=== PATIENT | male | born 1960 | race Asian ===

== ENCOUNTER 2020-06-09 16:30 | Emergency (ER) | payer OTHER ==
[~2020-06-09] VITALS: Ht 167.6 cm; Wt 81.6 kg
[2020-06-09 19:16] VITALS: BP 135/76
[2020-06-09] MEDS ORDERED: IBU600 M2 PO (19:16)
== END 2020-06-09 19:31 | disposition home or self-care (01) ==
LOC: ED 16:30
DX: S13.9XXA Sprain of joints and ligaments of unspecified parts of neck, initial encounter (principal); S00.03XA Contusion of scalp, initial encounter; S50.311A Abrasion of right elbow, initial encounter; M54.5 Low back pain; M25.521 Pain in right elbow; I10 Essential (primary) hypertension; W18.39XA Other fall on same level, initial encounter; Y93.89 Activity, other specified; Y92.89 Other specified places as the place of occurrence of the external cause; Y99.8 Other external cause status